=== PATIENT | male | born 1945 | race Caucasian/White ===

== ENCOUNTER 2023-08-04 08:56 | Emergency (ER) | payer MEDICARE, OTHER ==
[~2023-08-04] VITALS: Ht 167.6 cm; Wt 62.9 kg
[~2023-08-04 08:56] MED LIST: ASPI-612 PO; ATOR-2 PO; LEVO200T8 PO; LOSA50TA64 PO
[2023-08-04] MEDS ORDERED: APIX5TAB3 PO (09:04)
[2023-08-04] MEDS ORDERED: OLME20TA69 PO (09:04)
[2023-08-04] MEDS ORDERED: CEPH250T PO (11:55)
[2023-08-04 12:28] VITALS: BP 148/84; PULSE 76; RESP 14; TEMP 97.8; O2SAT 98
== END 2023-08-04 12:20 | disposition home or self-care (01) ==
LOC: ER 08:56
DX: T82.129A Displacement of unspecified cardiac electronic device, initial encounter (principal); R07.89 Other chest pain; Z88.2 Allergy status to sulfonamides; Z88.6 Allergy status to analgesic agent; Z79.2 Long term (current) use of antibiotics; Z79.899 Other long term (current) drug therapy
CPT/HCPCS: 93005; 99285

== ENCOUNTER 2023-08-07 10:05 | Day surgery (SDC) | payer MEDICARE, OTHER ==
[~2023-08-07] VITALS: Ht 167.6 cm; Wt 62.5 kg
[2023-08-07] VITALS (8 sets, daily range): BP systolic 93–112; BP diastolic 47–79; PULSE 60–67; RESP 14–18; TEMP 98; O2SAT 94–99
[~2023-08-07 10:05] MED LIST changes: +APIX5TAB3 PO; -ASPI-612 PO; -ATOR-2 PO; +CEPH250T PO; -LOSA50TA64 PO; +OLME20TA69 PO
[2023-08-07] MEDS ORDERED: ATOR80TA PO (10:43)
[2023-08-07] MEDS ORDERED: NITR0.4T48 SL (10:43)
[2023-08-07] MEDS ORDERED: ASPI81TA52 PO (10:43)
[2023-08-07] MEDS ORDERED: LOSA-415 PO (10:43)
[2023-08-07] MEDS: normal saline 1000ml 1,000 ML IV SCH (10:47)
[2023-08-07] MEDS: vancomycin/NS 1 GM ADD-VANTAGE 250 ML X 1 DOSE IV ONE (10:47)
[2023-08-07 11:00] LABS: BASOPHILS # (AUTO) 0.1 X10'3 (0-0.2); BASOPHILS % (AUTO) 0.7 % (0-1); EOSINOPHILS # (AUTO) 0.1 X10'3 (0-0.9); EOSINOPHILS % (AUTO) 1.2 % (0-6); HEMATOCRIT 46.4 % (42.0-52.0); HEMOGLOBIN 15.3 g/dl (14.0-17.9); LYMPHOCYTES % (AUTO) 11.3 % (21-51); MEAN CORPUSCULAR HEMOGLOBIN 26.5 PG (27.0-31.0); MEAN CORPUSCULAR HGB CONC 32.9 g/dL (33.0-36.5); MEAN CORPUSCULAR VOLUME 80.4 FL (78-98); MEAN PLATELET VOLUME 7.8 FL (7.4-10.4); MONOCYTES # (AUTO) 0.8 X10'3 (0-0.9); MONOCYTES % (AUTO) 9.8 % (2-12); NEUTROPHILS # (AUTO) 6.6 X10'3 (1.8-7.7); PLATELET COUNT 314 X10'3 (140-440); RED BLOOD COUNT 5.77 X10'6 (4.70-6.10); RED CELL DISTRIBUTION WIDTH 16.2 % (11.5-14.5); WHITE BLOOD COUNT 8.6 X10'3 (4.5-11.0)
[2023-08-07] MEDS ORDERED: CEPH250C PO (11:04)
[2023-08-07 11:17] LABS: ALBUMIN 3.5 G/DL (3.4-5.0); ANION GAP 10 (8-16); BLOOD UREA NITROGEN 14 MG/DL (7-18); BUN/CREATININE RATIO 13.6 (10.0-20.0); CALCIUM 10.4 MG/DL (8.5-10.1); CHLORIDE 102 MMOL/L (99-107); CREATININE 1.03 MG/DL (0.60-1.10); GLUCOSE 96 MG/DL (70-104); MAGNESIUM 2.1 MG/DL (1.5-2.4); POTASSIUM 4.1 MMOL/L (3.5-5.1); SODIUM 137 MMOL/L (135-145); TOTAL CARBON DIOXIDE 25.1 MMOL/L (24-32); eCRCL 53 ML/MIN; eGFR 70 ML/MIN
[2023-08-07 11:31] LABS: INR 1.1 INR
[2023-08-07 11:51] LABS: PROTHROMBIN TIME 11.6 SECONDS (9.0-12.0)
[2023-08-07] MEDS ORDERED: fentaNYL/PF 50MCG/1 ML 2ML syringe ONE ×2 (11:58→12:27)
[2023-08-07] MEDS ORDERED: LIDOcaine 1% W/epiNEPHrine 1:100,000 20ml vial ONE (11:58)
[2023-08-07] MEDS ORDERED: vancomycin 1,000mg inj ONE (11:58)
[2023-08-07] MEDS ORDERED: midazolam 1 mg/ML 2ml injection ONE ×3 (11:58→12:41)
[2023-08-07] MEDS ORDERED: HYDROcodone/acetaminophen 5mg/325mg tablet PO PRN (13:45)
[2023-08-07] MEDS ORDERED: HYDROcodone/acetaminophen 10/325mg tab PO PRN (13:45)
== END 2023-08-07 15:30 | disposition home or self-care (01) ==
LOC: SSTAY O 10:05
PROVIDERS: ATTEND Internal Medicine Cardiovascular Disease
DX: Z45.018 Encounter for adjustment and management of other part of cardiac pacemaker (principal); I49.5 Sick sinus syndrome; I10 Essential (primary) hypertension; I25.118 Atherosclerotic heart disease of native coronary artery with other forms of angina pectoris; E78.5 Hyperlipidemia, unspecified; E03.9 Hypothyroidism, unspecified; Z79.01 Long term (current) use of anticoagulants; Z79.82 Long term (current) use of aspirin; Z79.890 Hormone replacement therapy; Z79.899 Other long term (current) drug therapy; Z90.79 Acquired absence of other genital organ(s); Z95.5 Presence of coronary angioplasty implant and graft; Z98.890 Other specified postprocedural states; Z88.2 Allergy status to sulfonamides; Z88.8 Allergy status to other drugs, medicaments and biological substances; Z82.49 Family history of ischemic heart disease and other diseases of the circulatory system
CPT/HCPCS: 33233; 33235; 36415; 80048; 83735; 85025; 85610; 93005; 99152; 99153; J2250; J3010; J3370; J3490; J7030; Z7610; 33222

== ENCOUNTER 2023-08-21 06:40 | Day surgery (SDC) | payer MEDICARE, OTHER ==
[2023-08-21] VITALS (8 sets, daily range): BP systolic 122–150; BP diastolic 58–81; PULSE 63–74; RESP 10–20; TEMP 98.1; O2SAT 95–98
[~2023-08-21] VITALS: Ht 167.6 cm; Wt 64.5 kg
[~2023-08-21 06:40] MED LIST changes: +ASPI81TA52 PO; +ATOR80TA PO; +CEPH250C PO; -CEPH250T PO; +LOSA-415 PO; +NITR0.4T48 SL; -OLME20TA69 PO
[2023-08-21] MEDS ORDERED: cefazolin 2gm/D5W 100mL 100 ML IV ONE (06:55)
[2023-08-21 07:33] LABS: BASOPHILS # (AUTO) 0.1 X10'3 (0-0.2); BASOPHILS % (AUTO) 0.6 % (0-1); EOSINOPHILS # (AUTO) 0.2 X10'3 (0-0.9); EOSINOPHILS % (AUTO) 2.1 % (0-6); HEMATOCRIT 43.3 % (42.0-52.0); HEMOGLOBIN 14.1 g/dl (14.0-17.9); LYMPHOCYTES % (AUTO) 10.8 % (21-51); MEAN CORPUSCULAR HEMOGLOBIN 26.4 PG (27.0-31.0); MEAN CORPUSCULAR HGB CONC 32.6 g/dL (33.0-36.5); MEAN CORPUSCULAR VOLUME 81.1 FL (78-98); MEAN PLATELET VOLUME 7.8 FL (7.4-10.4); MONOCYTES % (AUTO) 10.8 % (2-12); NEUTROPHILS # (AUTO) 7.1 X10'3 (1.8-7.7); NEUTROPHILS % (AUTO) 75.7 % (42-75); PLATELET COUNT 332 X10'3 (140-440); RED BLOOD COUNT 5.34 X10'6 (4.70-6.10); RED CELL DISTRIBUTION WIDTH 16.2 % (11.5-14.5); WHITE BLOOD COUNT 9.4 X10'3 (4.5-11.0)
[2023-08-21 07:41] LABS: ALBUMIN 3.1 G/DL (3.4-5.0); ANION GAP 7 (8-16); BLOOD UREA NITROGEN 19 MG/DL (7-18); BUN/CREATININE RATIO 17.9 (10.0-20.0); CALCIUM 9.7 MG/DL (8.5-10.1); CHLORIDE 108 MMOL/L (99-107); CREATININE 1.06 MG/DL (0.60-1.10); GLUCOSE 107 MG/DL (70-104); POTASSIUM 3.9 MMOL/L (3.5-5.1); SODIUM 142 MMOL/L (135-145); TOTAL CARBON DIOXIDE 27.2 MMOL/L (24-32); eCRCL 53 ML/MIN; eGFR 68 ML/MIN
[2023-08-21 07:43] LABS: INR 1.1 INR; PROTHROMBIN TIME 11.4 SECONDS (9.0-12.0)
[2023-08-21] MEDS: vancomycin/NS 1 GM ADD-VANTAGE 250 ML IV ONE (07:45)
[2023-08-21] MEDS ORDERED: fentaNYL/PF 50MCG/1 ML 2ML syringe ONE (08:50)
[2023-08-21] MEDS ORDERED: vancomycin 1,000mg inj ONE (08:50)
[2023-08-21] MEDS ORDERED: iohexol 350 MG/ML 50ML vial IV ONE (08:50)
[2023-08-21] MEDS ORDERED: midazolam 1 mg/ML 2ml injection ONE ×4 (08:50→10:26)
[2023-08-21] MEDS ORDERED: LIDOcaine 1% W/epiNEPHrine 1:100,000 20ml vial ONE ×2 (08:50→10:39)
[2023-08-21] MEDS ORDERED: normal saline 1000ml 1,000 ML IV SCH (11:40)
== END 2023-08-21 13:05 | disposition home or self-care (01) ==
LOC: SSTAY O 06:40
PROVIDERS: ATTEND Internal Medicine Cardiovascular Disease
DX: I49.5 Sick sinus syndrome (principal); R55 Syncope and collapse; Z79.01 Long term (current) use of anticoagulants; Z79.82 Long term (current) use of aspirin; Z79.890 Hormone replacement therapy; Z79.899 Other long term (current) drug therapy
CPT/HCPCS: 33208; 36415; 71045; 80048; 83735; 85025; 85610; 93005; 99152; 99153; A4565; C1785; C1898; J2250; J3010; J3370; J3490; J7030; Q9967; Z7610; C1786